=== PATIENT | male | born 1980 | race Caucasian/White ===

== ENCOUNTER → 2021-06-15 | Outpatient (REF) ==
--- NOTE | 2021-06-15 11:21 | REP ---
INDICATION: ARTHRITIS. COMPARISON: None. TECHNIQUE: Three views each knee FINDINGS: Right knee: No fracture, dislocation or bone test item allergy. Soft tissues unremarkable. Joint spaces well maintained. Left knee: No fracture, dislocation or bone Testim allergy. Soft tissues unremarkable. Joint spaces well maintained. IMPRESSION: Negative radiographs of the knees. <Electronically signed by Mohit Cook > 06/15/21 [id number]
--- NOTE | 2021-06-15 11:33 | REP ---
INDICATION: ARTHRITIS. COMPARISON: None. TECHNIQUE: Four views bilateral FINDINGS: The joint spaces are symmetric and relatively well maintained. There is no evidence of acute fracture or destructive osseous lesion. IMPRESSION: Within normal limits bilateral <Electronically signed by Tray Castañeda > 06/15/21 1120
== END ==
LOC: M PLAIMG 10:22
PROVIDERS: ATTEND Internal Medicine
DX: M19.90 Unspecified osteoarthritis, unspecified site (principal)

== ENCOUNTER → 2023-05-18 | Outpatient (CLI) | payer OTHER | LOC: M PLAIMG 14:33 | PROVIDERS: ATTEND Family Medicine | DX: I72.9 Aneurysm of unspecified site (principal) ==